=== PATIENT | female | born 1945 | race American Indian/Alaskan Native ===

== ENCOUNTER 2021-11-22 22:38 | Emergency (ER) | payer SELFPAY ==
[2021-11-22 22:47] VITALS: BP 172/96
[2021-11-22] MEDS ORDERED: IPRATROPIUM/ALBUTEROL SULFATE 3 ML AMPUL.NEB IH ONE (23:05)
[2021-11-22] MEDS ORDERED: predniSONE 20 MG TAB PO ONE (23:05)
[2021-11-23] MEDS ORDERED: predniSONE 10 MG TAB PO ONE (00:31)
[2021-11-23] MEDS ORDERED: predniSONE 50 MG TAB ONE (00:31)
--- NOTE | 2021-11-23 00:52 | Emergency Department Report ---
ED Asthma HPI - General Chief Complaint: Adult Asthma Stated Complaint: MEDICATION REFILL Time Seen by Provider: 11/23/21 00:43 Source: patient Mode of arrival: Ambulatory Limitations: No Limitations - History of Present Illness Initial Comments: Patient 76-year-old female with history of asthma. Who presents for wheezing past 3 days. States she is out of her albuterol inhaler. Patient is [facility] patient. However she went to [facility] today and they were unable to provide inhaler advised to report to ED for nebulizer treatment and refill. Jeovanny yi denies chest pain there is no dizziness or lightheadedness. Wheezing is rated at 2/10 at this time. Patient arrived via POV patient is ambulatory there is no audible wheezing there has been no chest pain no nausea no vomiting. Patient advises she just needs a refill on her inhaler. MD Complaint: wheezing - Related Data Previous Rx's Medication Instructions Recorded Last Taken Type Albuterol Mdi (or & Nicu Only) 2 puff IH QID PRN #8.5 gram 11/23/21 Unknown Rx [ProAir HFA Inhaler] predniSONE [Deltasone] 40 mg PO QDAY 5 Days #10 tab 11/23/21 Unknown Rx Allergies Allergy/AdvReac Type Severity Reaction Status Date / Time No Known Allergies Allergy Verified 11/23/21 00:36 ED Review of Systems ROS: Stated complaint: MEDICATION REFILL Other details as noted in HPI Constitutional: denies: chills, fever Eyes: denies: eye pain, eye discharge, vision change ENT: congestion Respiratory: cough, shortness of breath, wheezing Cardiovascular: denies: chest pain, palpitations Endocrine: no symptoms reported Gastrointestinal: denies: abdominal pain, nausea, vomiting, diarrhea Genitourinary: denies: urgency, dysuria, discharge Musculoskeletal: denies: back pain, joint swelling, arthralgia Skin: denies: rash, lesions Neurological: denies: headache, weakness, paresthesias Psychiatric: denies: anxiety, depression Hematological/Lymphatic: denies: easy bleeding, easy bruising ED Past Medical Hx - Past Medical History Previous Medical History?: No - Medications Home Medications: Home Medications Medication Instructions Recorded Confirmed Last Taken Type Albuterol Mdi (or & Nicu Only) 2 puff IH QID PRN #8.5 gram 11/23/21 Unknown Rx [ProAir HFA Inhaler] predniSONE [Deltasone] 40 mg PO QDAY 5 Days #10 tab 11/23/21 Unknown Rx ED Physical Exam - General Limitations: No Limitations General appearance: alert, in no apparent distress - Head Head exam: Present: normocephalic, normal inspection - Eye Eye exam: Present: normal appearance, PERRL, EOMI Pupils: Present: normal accommodation - ENT ENT exam: Present: normal orophraynx, mucous membranes moist - Neck Neck exam: Present: normal inspection, full ROM. Absent: tenderness, lymphadenopathy - Respiratory Respiratory exam: Present: wheezes (Mild expiratory anterior upper lobes). Absent: respiratory distress, rales, rhonchi, stridor, chest wall tenderness - Cardiovascular Cardiovascular Exam: Present: regular rate, normal rhythm, normal heart sounds. Absent: systolic murmur, diastolic murmur, rubs, gallop - GI/Abdominal GI/Abdominal exam: Present: soft, normal bowel sounds - Rectal Rectal exam: Present: deferred - Extremities Exam Extremities exam: Present: normal inspection, full ROM, normal capillary refill - Back Exam Back exam: Present: normal inspection, full ROM. Absent: CVA tenderness (R), CVA tenderness (L) - Neurological Exam Neurological exam: Present: alert, oriented X3, CN II-XII intact - Expanded Neurological Exam Expanded Patient oriented to: Present: person, place, time Speech: Present: fluid speech Best Eye Response (Gato): (4) open spontaneously Best Motor Response (Gato): (6) obeys commands Best Verbal Response (Gato): (5) oriented Gato Total: 15 - Psychiatric Psychiatric exam: Present: normal affect - Skin Skin exam: Present: warm, dry, intact, normal color. Absent: rash ED Course Vital Signs 11/22/21 22:38 Temperature 98 F Pulse Rate 109 H Respiratory 18 Rate Blood Pressure 172/96 [Right] O2 Sat by Pulse 96 Oximetry ED Medical Decision Making - Medical Decision Making Symptoms improved with medications given in ED. Patient has ambulated from room to bathroom and back, without increased shortness of breath or wheezing. Patient states breathing is at baseline. Plan refill albuterol inhaler as previously prescribed. Patient will follow with primary care doctor in AM. Patient verbalized agreement and understanding of discharge plan patient DC to home with daughter at this time. Critical care attestation.: If time is entered above; I have spent that time in minutes in the direct care of this critically ill patient, excluding procedure time. ED Disposition Clinical Impression: Asthma Qualifiers: Asthma severity: mild Asthma persistence: intermittent Asthma complication type: unspecified Qualified Code(s): J45.20 - Mild intermittent asthma, uncomplicated Disposition: HOME / SELF CARE / HOMELESS Is pt being admited?: No Does the pt Need Aspirin: No Condition: Stable Instructions: Asthma (ED), Asthma, Adult, How to Use a Nebulizer, Adult Additional Instructions: Use medications as prescribed, follow-up with your doctor in a.m. to fill additional medications. Turn to emergency department should symptoms worsen. Prescriptions: predniSONE [Deltasone] 40 mg PO QDAY 5 Days #10 tab Albuterol Mdi (or & Nicu Only) [ProAir HFA Inhaler] 2 puff IH QID PRN #8.5 gram PRN Reason: Shortness Of Breath Referrals: LENO ROMAN MD [Staff Physician] - 3-5 Days Time of Disposition: 00:54
== END 2021-11-23 01:10 | disposition home or self-care (01) ==
LOC: ED 22:38
DX: J45.909 Unspecified asthma, uncomplicated (principal)
CPT/HCPCS: 94640; 99282; J7512